=== PATIENT | female | born 1955 | race Caucasian/White ===

== ENCOUNTER 2017-03-13 21:10 | Emergency (ER) | payer BC ==
[~2017-03-13] VITALS: Ht 157.5 cm; Wt 99.7 kg
[2017-03-13 22:40] LABS: HEMATOCRIT 41.7 % (36.0-46.0); MCH 28.5 PG (29.0-34.0); MCHC 32.9 G/DL (30.0-36.0); MCV 86.9 FL (83-99); PLATELET COUNT 258 K/uL (156-360); RBC DIS.WIDTH-SD 44.9 % (39-53)
[2017-03-13 22:48] LABS: CHLORIDE 101 mEq/L (99-109); SODIUM 138 mEq/L (136-147)
[2017-03-13 22:50] LABS: GLUCOSE 129 mg/dL (70-99)
[2017-03-13 22:51] LABS: ANION GAP 11 MEQ/L (2-14)
[2017-03-13 22:53] LABS: GFR ESTIMATE (CALCULATED) > 59 mL/min/
[2017-03-13 22:54] LABS: UREA NITROGEN (BUN) 17 mg/dL (9-23)
[2017-03-13 23:00] LABS: TROP-I INTERPRETATION NEGATIVE; TROPONIN-I < 0.01 ng/mL (0.0-0.30)
[2017-03-14] MEDS ORDERED: VALIUM5 MG PO (00:43)
[2017-03-14] MEDS ORDERED: TYLENOL WITH C1 EACH PO (00:43)
[2017-03-14] MEDS ORDERED: LIDOCAINE700 MG TD (00:43)
[2017-03-14 01:22] VITALS: BP 134/69
== END 2017-03-14 01:23 | disposition home or self-care (01) ==
LOC: EME 21:10
DX: S29.011A Strain of muscle and tendon of front wall of thorax, initial encounter (principal); M62.838 Other muscle spasm; X50.1XXA Overexertion from prolonged static or awkward postures, initial encounter
CPT/HCPCS: 71020; 80048; 84484; 85027; 93005; 99281; 99284